=== PATIENT | female | born 1990 | race African-American/Black ===

== ENCOUNTER 2022-09-21 00:17 | Emergency (ER) | payer SELFPAY ==
[~2022-09-21] VITALS: Ht 162.6 cm; Wt 95.5 kg
--- NOTE | 2022-09-21 00:51 | NUR ---
Patient's mom (WILIAM) called and gave her # [phone]
[2022-09-21 02:15] LABS: BASOPHILS # (AUTO) 0.1 X10'3 (0-0.2); BASOPHILS % (AUTO) 0.7 % (0-1); EOSINOPHILS % (AUTO) 0.3 % (0-6); HEMATOCRIT 43.5 % (35.0-45.0); LYMPHOCYTES # (AUTO) 1.9 X10'3 (1.1-4.8); LYMPHOCYTES % (AUTO) 19.2 % (21-51); MEAN CORPUSCULAR HEMOGLOBIN 26.7 PG (27.0-31.0); MEAN CORPUSCULAR HGB CONC 32.3 g/dL (33.0-36.5); MEAN CORPUSCULAR VOLUME 82.6 FL (78-98); MONOCYTES # (AUTO) 0.7 X10'3 (0-0.9); MONOCYTES % (AUTO) 6.7 % (2-12); NEUTROPHILS # (AUTO) 7.3 X10'3 (1.8-7.7); NEUTROPHILS % (AUTO) 73.1 % (42-75); PLATELET COUNT 341 X10'3 (140-440); RED BLOOD COUNT 5.26 X10'6 (4.20-5.60)
[2022-09-21 02:23] LABS: ALANINE AMINOTRANSFERASE 26 U/L (12-78); ALBUMIN 4.1 G/DL (3.4-5.0); ALBUMIN/GLOBULIN RATIO 1.1 (1.1-1.5); ALKALINE PHOSPHATASE 67 IU/L (46-116); ANION GAP 9 (8-16); ASPARTATE AMINO TRANSFERASE 22 U/L (10-37); BILIRUBIN,TOTAL 0.8 MG/DL (0.1-1.0); BLOOD UREA NITROGEN 22 MG/DL (7-18); CALCIUM 9.5 MG/DL (8.5-10.1); CHLORIDE 102 MMOL/L (99-107); CREATININE 0.88 MG/DL (0.40-0.90); ETHANOL < 0.010 GM/DL (0.0-0.010); GLUCOSE 124 MG/DL (70-104); POTASSIUM 3.7 MMOL/L (3.5-5.1); SODIUM 137 MMOL/L (135-145); TOTAL CARBON DIOXIDE 25.7 MMOL/L (24-32); eGFR 75 ML/MIN
[2022-09-21 02:32] LABS: ACETAMINOPHEN < 2.0 UG/ML (10-30)
[2022-09-21 05:24] LABS: CLARITY,URINE SLIGHTLY CLOUDY (Clear); COLOR,URINE YELLOW (Yellow); GLUCOSE, URINE NEGATIVE (Neg); KETONES,URINE 15 mg/dl (Neg); LEUKOCYTE ESTERASE ,URINE NEGATIVE (Neg); NITRITES, URINE NEGATIVE (Neg); OCCULT BLOOD,URINE NEGATIVE (Neg); PH,URINE 5.5 (4.8-8.0); PROTEIN,URINE NEGATIVE (Neg); UROBILINOGEN,URINE 0.2 E.U/dL (0.2-1.0)
[2022-09-21 05:25] LABS: UA COLLECTION TYPE CLN CATCH MIDSTREAM; URINE HCG NEGATIVE (NEG)
[2022-09-21 05:29] LABS: RBC,URINE NONE SEEN /HPF (0-2); WBC,URINE 0-4 /HPF (0-4)
[2022-09-21 05:30] LABS: BACTERIA,URINE 1+ /HPF (Neg); MUCUS STRANDS MODERATE /LPF (Neg); SQUAMOUS EPITHELIAL CELL,UR MANY /LPF (FEW)
[2022-09-21 05:38] LABS: URINE AMPHETAMINE SCREEN NEGATIVE (Neg); URINE BARBITUATE SCREEN NEGATIVE (Neg); URINE BENZODIAZEPINES SCREEN NEGATIVE (Neg); URINE CANNABINOID SCREEN NEGATIVE (Neg); URINE COCAINE SCREEN NEGATIVE (Neg); URINE METHADONE SCREEN NEGATIVE (Neg); URINE OPIATE SCREEN NEGATIVE (Neg); URINE PHENCYCLIDINE SCREEN NEGATIVE (Neg)
--- NOTE | 2022-09-21 07:00 | NUR ---
PTS MOTHER CALLED AND REPORTS SHE WILL BE ARRIVING SOMETIME AFTER 3PM TODAY SHE IS FLYING IN FROM [place].
--- NOTE | 2022-09-21 07:30 | NUR ---
Pt mother called back after talking with daughter. Mother discloses pt has been depressed since they moved from [place] to [place] and unemployment that happened after Covid. Pt had disagreement about "taking the trash out" and when it was brought up later pt reported she was going to take the trash out but then had taken her mothers keys to vehicle and wallet and took off. Mother reports charges on card were made in [place] and mother had then reported her taking off to law enforcement. As mother had cards turned off pt ran out of gas and that is when local authorities encountered pt.
--- NOTE | 2022-09-21 08:15 | NUR ---
Pt given breakfast tray and pt currently eating.
--- NOTE | 2022-09-21 10:06 | NUR ---
Pt sleeping comfortably at this time, no signs of distress.
--- NOTE | 2022-09-21 11:12 | NUR ---
Pt comfortably resting on gurney. Pt denied suicidal thoughts or plan to hurt self.
--- NOTE | 2022-09-21 12:15 | NUR ---
Lunch tray placed at bedside. Pt declines at to eat at this time.
--- NOTE | 2022-09-21 14:20 | NUR ---
Pt seen by [facility] assistant professor of art [place]. Sinter Feeder will be awaiting to speak with pts mother and aware mother will be flying in from [place] this afternoon.
--- NOTE | 2022-09-21 18:36 | NUR ---
Patient sitting up in room at this time, no distress noted. Patient eating provided meal.
[2022-09-21 20:06] VITALS: BP 140/85
--- NOTE | 2022-09-21 20:19 | NUR ---
Patients mother arrives to ER, patient provided all belongings from secure area. Patient verbalizes understanding DC instructions, departs ER with mother.
== END 2022-09-21 20:21 | disposition home or self-care (01) ==
LOC: ER 00:18
DX: R45.851 Suicidal ideations (principal); Z20.822 Contact with and (suspected) exposure to COVID-19; F32.9 Major depressive disorder, single episode, unspecified; Z72.89 Other problems related to lifestyle; Z88.1 Allergy status to other antibiotic agents
CPT/HCPCS: 36415; 80053; 80305; 80320; 80329; 81001; 81025; 85025; 87635; 99285; C9803